=== PATIENT | male | born 1955 | race Two or more races ===

== ENCOUNTER 2016-04-26 20:57 | Inpatient (IN) | payer MEDICAID ==
[~2016-04-26] VITALS: Ht 154.9 cm; Wt 28.7 kg
[~2016-04-26 20:57] MED LIST: ENAL-3 PO; GABA-494 OR; INSLISPI; INSUPOW; NOR5T GT; [UNRECOGNIZED DRUG - OTHER] SUBCUT
[2016-04-26 22:07] LABS: Basophils # (auto) 0.1 uL; Basophils % (auto) 1.1 % (0.0-2.0); DEFINITIVE VIEW TRANSMISSION; Eosinophils # (auto) 0.7 uL; Eosinophils % (auto) 9.9 % (0.0-7.0); Hematocrit 25.7 % (41.0-53.0); Hemoglobin 8.6 g/dL (13.5-17.5); Lymphocytes # (auto) 0.9 uL; Lymphocytes % (auto) 12.8 % (10.0-50.0); Mean Corpuscular Hemoglobin 28.7 pg (28.0-32.0); Mean Corpuscular Hgb Conc. 33.6 g/dL (32.0-36.0); Mean Corpuscular Volume 85.3 fL (80.0-100.0); Mean Platelet Volume 8.4 fL (7.4-10.4); Monocytes # (auto) 0.8 uL; Monocytes % (auto) 10.9 % (0.0-12.0); Neutrophils # (auto) 4.8 uL; Neutrophils % (auto) 65.3 % (37.0-80.0); Platelet Count (auto) 238 10^3/uL (140-450); Red Cell Distribution Width 15.8 % (11.6-16.0); White Blood Cell 7.4 10^3/uL (4.4-10.8)
[2016-04-26 22:19] LABS: Albumin 1.3 g/dL (3.4-5.0); BUN/Creatinine Ratio 18.9; Calcium 7.2 mg/dL (8.5-10.1); Magnesium 1.5 mg/dL (1.6-2.6); Potassium 3.9 mmol/L (3.5-5.1)
[2016-04-26 22:20] LABS: INR 1.06 (0.9-1.15); Partial Thromboplastin Time 29.7 sec (22.64-33.71); Prothrombin Time 10.9 sec (9.37-12.3)
[2016-04-26 22:21] LABS: Bilirubin, Total 0.1 mg/dL (0.2-1.0); Total Protein 6.1 g/dL (6.4-8.2)
[2016-04-26] MEDS ORDERED: ASPirin 81 mg TAB PO ONE (22:45)
[2016-04-26] MEDS ORDERED: ALUM & MAG HYDROX-SIMETH LIQ(MAALOX) 30 ML PO ONE (22:45)
[2016-04-26] MEDS ORDERED: DONNATAL 5ml ORAL Elix (BELLADONNA ALK-PHENOBARB) PO ONE (22:45)
[2016-04-26] MEDS ORDERED: LIDOCAINE VISCOUS 2% 15ML UD PO ONE (22:45)
[2016-04-27] MEDS ORDERED: ACETAMINOPHEN 325 MG TAB PO PRN (00:30)
[2016-04-27] MEDS ORDERED: MORPHINE SULF INJ 2 MG/ML SYRINGE 1ML IV PRN (00:30)
[2016-04-27] MEDS ORDERED: DEXTROSE (50%) 50ML SYRG IV PRN (00:30)
[2016-04-27] MEDS ORDERED: MAGNESIUM SULFATE 1GM/100ML 100 ML IV ONE (00:30)
[2016-04-27] MEDS ORDERED: TEMAZEPAM 15 MG CAP PO PRN (00:30)
[2016-04-27] MEDS ORDERED: NITROGLYCERIN 0.4 MG SL TAB SL PRN (00:30)
[2016-04-27] MEDS ORDERED: HYDROcodone-ACET 5/325MG TAB PO PRN (00:30)
[2016-04-27] MEDS: SODIUM CHLORIDE 0.9% 1,000 ML IV SCH ×3 (00:45→22:47)
[2016-04-27] MEDS: MORPHINE SULF INJ 2 MG/ML SYRINGE 1ML IV PRN ×6 (02:37→22:47)
[2016-04-27 05:00] VITALS: BP 145/79
[2016-04-27] MEDS: ACCU-CHEK COMFORT CURVE STRIP VI SCH ×3 (05:54→17:32)
[2016-04-27] MEDS: InsuLIN REG 1unit/0.01ml Soln (100units/ml) SC SCH ×3 (05:54→17:37)
[2016-04-27] MEDS ORDERED: FERROUS SULFATE 325 MG TAB PO SCH (08:00)
[2016-04-27] MEDS: ADENOSINE 42 MG in GIVE UN-DILUTED 0 ML IV ONE ×2 (08:30→11:36)
[2016-04-27 08:33] VITALS: BP 143/80
[2016-04-27] MEDS: FAMOTIDINE 20 MG TAB PO SCH ×3 (10:00→22:45)
[2016-04-27] MEDS: ASPirin 81 mg TAB PO SCH (10:00)
[2016-04-27] MEDS: ENOXAPARIN SOD 30 MG/0.3 ML SYRINGE SC SCH (10:00)
[2016-04-27] MEDS: HYDROXYCHLOROQUINE SULFATE 200 MG TAB PO SCH ×2 (10:00→22:45)
[2016-04-27] MEDS: ENALAPRIL MALEATE 2.5 MG TAB PO SCH (10:12)
[2016-04-27] MEDS: METOPROLOL TARTRATE 25 MG TAB PO SCH ×2 (10:12→22:47)
[2016-04-27 12:31] VITALS: BP 153/78
[2016-04-27] MEDS ORDERED: EPOETIN ALFA 10,000 UNIT/1 ML VIAL SC ONE (13:15)
[2016-04-27] MEDS: ALBUMIN 25% 100 ML IV SCH ×2 (14:03→14:55)
[2016-04-27 14:59] LABS: Urine Bilirubin Negative (Negative); Urine Color Yellow (Yellow); Urine Ketone Negative (Negative); Urine Nitrite Negative (Negative); Urine RBC 8 /hpf (0 - 3); Urine Squamous Epithelial Cell FEW /hpf (<5); Urine Urobilinogen Normal (Negative); Urine pH 6.5 (5.0-8.0)
[2016-04-27 15:13] LABS: Urine Blood 1+ /uL (Negative); Urine Glucose 3+ mg/dL (Normal)
[2016-04-27] MEDS ORDERED: BUMETANIDE (0.25MG/ML) 4 ML VIAL IV ONE (16:15)
[2016-04-27 16:54] VITALS: BP 154/83
[2016-04-27] MEDS: Boost Glucose Control 8 Ounces PO SCH ×2 (17:24→22:00)
[2016-04-27] MEDS: FERROUS SULFATE 325 MG TAB PO SCH (17:28)
[2016-04-27] MEDS: TAMSULOSIN HYDROCHLORIDE 0.4 MG CAP PO SCH (17:28)
[2016-04-27] MEDS: ONDANSETRON HCL 4 MG/2 ML VIAL IV PRN (18:51)
[2016-04-27 22:54] VITALS: BP 119/79
[2016-04-28] VITALS (12 sets, daily range): BP systolic 148–161; BP diastolic 79–95
[2016-04-28] MEDS: InsuLIN REG 1unit/0.01ml Soln (100units/ml) SC SCH ×5 (00:50→23:38)
[2016-04-28] MEDS: ACCU-CHEK COMFORT CURVE STRIP VI SCH ×5 (01:25→23:38)
[2016-04-28] MEDS: ONDANSETRON HCL 4 MG/2 ML VIAL IV PRN ×5 (01:58→20:43)
[2016-04-28] MEDS: Boost Glucose Control 8 Ounces PO SCH ×4 (06:00→22:00)
[2016-04-28 06:39] LABS: Basophils # (auto) 0.1 uL; Basophils % (auto) 1.5 % (0.0-2.0); Eosinophils # (auto) 0.3 uL; Eosinophils % (auto) 3.5 % (0.0-7.0); Hematocrit 29.6 % (41.0-53.0); Lymphocytes # (auto) 1.1 uL; Lymphocytes % (auto) 13.5 % (10.0-50.0); Mean Corpuscular Hemoglobin 28.9 pg (28.0-32.0); Mean Corpuscular Hgb Conc. 33.7 g/dL (32.0-36.0); Mean Corpuscular Volume 85.6 fL (80.0-100.0); Mean Platelet Volume 9.1 fL (7.4-10.4); Monocytes # (auto) 0.5 uL; Monocytes % (auto) 6.2 % (0.0-12.0); Neutrophils % (auto) 75.3 % (37.0-80.0); Platelet Count (auto) 243 10^3/uL (140-450); Red Cell Distribution Width 15.6 % (11.6-16.0)
[2016-04-28 07:02] LABS: BUN/Creatinine Ratio 26.3; Bilirubin, Total 0.5 mg/dL (0.2-1.0); Calcium 7.7 mg/dL (8.5-10.1); Magnesium 1.8 mg/dL (1.6-2.6); Phosphorus 3.2 mg/dL (2.6-4.90); Potassium 3.8 mmol/L (3.5-5.1); Total Protein 6.2 g/dL (6.4-8.2); Uric Acid 4.1 mg/dL (3.5-7.2)
[2016-04-28] MEDS: MORPHINE SULF INJ 2 MG/ML SYRINGE 1ML IV PRN ×4 (07:31→20:43)
[2016-04-28] MEDS: FERROUS SULFATE 325 MG TAB PO SCH ×3 (08:33→18:00)
[2016-04-28] MEDS: ENOXAPARIN SOD 30 MG/0.3 ML SYRINGE SC SCH (09:41)
[2016-04-28] MEDS: ENALAPRIL MALEATE 2.5 MG TAB PO SCH (09:47)
[2016-04-28] MEDS: HYDROXYCHLOROQUINE SULFATE 200 MG TAB PO SCH ×2 (09:47→23:20)
[2016-04-28] MEDS: METOPROLOL TARTRATE 25 MG TAB PO SCH ×2 (09:50→23:19)
[2016-04-28] MEDS: ASPirin 81 mg TAB PO SCH (09:52)
[2016-04-28] MEDS: FAMOTIDINE 20 MG TAB PO SCH ×2 (09:53→23:20)
[2016-04-28] MEDS: TAMSULOSIN HYDROCHLORIDE 0.4 MG CAP PO SCH (18:00)
[2016-04-28 18:21] LABS: Urine Bilirubin Negative (Negative); Urine Blood 2+ /uL (Negative); Urine Color Yellow (Yellow); Urine Glucose 2+ mg/dL (Normal); Urine Ketone Negative (Negative); Urine Nitrite Negative (Negative); Urine RBC 3 /hpf (0 - 3); Urine Squamous Epithelial Cell FEW /hpf (<5); Urine Urobilinogen Normal (Negative); Urine pH 6.5 (5.0-8.0)
[2016-04-29] MEDS: MORPHINE SULF INJ 2 MG/ML SYRINGE 1ML IV PRN ×5 (01:04→21:33)
[2016-04-29] MEDS: ONDANSETRON HCL 4 MG/2 ML VIAL IV PRN ×3 (01:05→13:10)
[2016-04-29] MEDS: cloNIDine HCL 0.1 MG TAB PO PRN (01:17)
[2016-04-29] MEDS: SODIUM CHLORIDE 0.9% 1,000 ML IV SCH ×2 (02:18→21:43)
[2016-04-29 05:00] VITALS: BP 152/81
[2016-04-29] MEDS: ACCU-CHEK COMFORT CURVE STRIP VI SCH ×3 (05:26→18:00)
[2016-04-29] MEDS: Boost Glucose Control 8 Ounces PO SCH ×4 (05:26→21:24)
[2016-04-29] MEDS: InsuLIN REG 1unit/0.01ml Soln (100units/ml) SC SCH ×3 (05:26→18:00)
[2016-04-29] MEDS: FERROUS SULFATE 325 MG TAB PO SCH ×3 (08:00→18:39)
[2016-04-29 08:12] VITALS: BP 160/79
[2016-04-29] MEDS: HYDROXYCHLOROQUINE SULFATE 200 MG TAB PO SCH ×2 (10:00→21:33)
[2016-04-29] MEDS: ASPirin 81 mg TAB PO SCH (10:00)
[2016-04-29] MEDS: FAMOTIDINE 20 MG TAB PO SCH ×2 (10:00→21:33)
[2016-04-29] MEDS: ENOXAPARIN SOD 30 MG/0.3 ML SYRINGE SC SCH (10:00)
[2016-04-29 10:30] VITALS: BP 152/88
[2016-04-29 12:30] VITALS: BP 149/79
[2016-04-29] MEDS ORDERED: LIDOCAINE 2%HCL (LOCAL ANESTH.) INJ 20ML MDV ONE (12:49)
[2016-04-29] MEDS ORDERED: IODIXANOL 320MG/ML 100ML BTL IV ONE ×2 (12:49→13:55)
[2016-04-29] MEDS ORDERED: MIDAZOLAM HCL 1MG/1ML-2 ML VIAL ONE (13:09)
[2016-04-29] MEDS ORDERED: ANGIOMAX 250 MG VIAL IV ONE (13:09)
[2016-04-29] MEDS ORDERED: fentaNYL CITRATE 100 MCG/2 ML VL ONE (13:09)
[2016-04-29] MEDS ORDERED: VERAPAMIL 2.5MG/ML INJ 2ML VIAL IV ONE (13:10)
[2016-04-29] MEDS ORDERED: SODIUM CHL 0.9% 50 ML ONE (13:10)
[2016-04-29] MEDS ORDERED: EPTIFIBATIDE INJ (2MG/ML) 10ML VIAL IV ONE (13:11)
[2016-04-29] MEDS ORDERED: TICAGRELOR 90 MG TAB ONE (13:40)
[2016-04-29] MEDS ORDERED: ASPirin-EC 325mg tab PO ONE (14:30)
[2016-04-29] MEDS ORDERED: TICAGRELOR 90 MG TAB PO ONE (14:30)
[2016-04-29] MEDS: ENALAPRIL MALEATE 2.5 MG TAB PO SCH (15:40)
[2016-04-29] MEDS: METOPROLOL TARTRATE 25 MG TAB PO SCH ×3 (15:40→21:51)
[2016-04-29 16:27] VITALS: BP 152/78
[2016-04-29] MEDS: TAMSULOSIN HYDROCHLORIDE 0.4 MG CAP PO SCH (18:39)
[2016-04-29 22:00] VITALS: BP 151/75
[2016-04-29] MEDS ORDERED: TICAGRELOR 90 MG TAB PO SCH (22:00)
[2016-04-29 22:53] LABS: BUN/Creatinine Ratio 21.2
[2016-04-30] MEDS: InsuLIN REG 1unit/0.01ml Soln (100units/ml) SC SCH ×3 (00:58→17:45)
[2016-04-30] MEDS: MORPHINE SULF INJ 2 MG/ML SYRINGE 1ML IV PRN ×5 (01:21→23:29)
[2016-04-30 05:06] VITALS: BP 158/85
[2016-04-30 05:25] LABS: Basophils # (auto) 0.1 uL; Basophils % (auto) 1.2 % (0.0-2.0); Eosinophils # (auto) 0.3 uL; Hemoglobin 9.9 g/dL (13.5-17.5); Lymphocytes # (auto) 1.4 uL; Lymphocytes % (auto) 22.1 % (10.0-50.0); Mean Corpuscular Hemoglobin 28.5 pg (28.0-32.0); Mean Corpuscular Hgb Conc. 32.9 g/dL (32.0-36.0); Mean Corpuscular Volume 86.5 fL (80.0-100.0); Mean Platelet Volume 9.2 fL (7.4-10.4); Monocytes # (auto) 0.7 uL; Monocytes % (auto) 11.7 % (0.0-12.0); Neutrophils # (auto) 3.8 uL; Platelet Count (auto) 217 10^3/uL (140-450); Red Cell Distribution Width 15.8 % (11.6-16.0); White Blood Cell 6.3 10^3/uL (4.4-10.8)
[2016-04-30] MEDS: Boost Glucose Control 8 Ounces PO SCH ×4 (05:26→21:55)
[2016-04-30 05:35] LABS: INR 1.15 (0.9-1.15); Partial Thromboplastin Time 37.6 sec (22.64-33.71); Prothrombin Time 11.8 sec (9.37-12.3)
[2016-04-30] MEDS: ACCU-CHEK COMFORT CURVE STRIP VI SCH ×4 (05:40→23:41)
[2016-04-30 05:46] LABS: BUN/Creatinine Ratio 24.1; Calcium 7.3 mg/dL (8.5-10.1); Potassium 3.7 mmol/L (3.5-5.1)
[2016-04-30] MEDS ORDERED: CLOPIDOGREL 300 MG TAB PO ONE ×2 (06:00→10:00)
[2016-04-30 08:11] VITALS: BP 143/77
[2016-04-30] MEDS: HYDROXYCHLOROQUINE SULFATE 200 MG TAB PO SCH ×2 (08:47→21:55)
[2016-04-30] MEDS: METOPROLOL TARTRATE 25 MG TAB PO SCH ×2 (08:48→21:54)
[2016-04-30] MEDS: ENALAPRIL MALEATE 2.5 MG TAB PO SCH (08:48)
[2016-04-30] MEDS: ASPirin 81 mg TAB PO SCH (08:49)
[2016-04-30] MEDS: FERROUS SULFATE 325 MG TAB PO SCH ×4 (08:49→17:45)
[2016-04-30] MEDS: FAMOTIDINE 20 MG TAB PO SCH ×2 (08:49→21:55)
[2016-04-30] MEDS ORDERED: ASPirin 81 mg TAB PO SCH (10:00)
[2016-04-30] MEDS: ENOXAPARIN SOD 30 MG/0.3 ML SYRINGE SC SCH (10:00)
[2016-04-30] MEDS: SODIUM CHLORIDE 0.9% 1,000 ML IV SCH (10:09)
[2016-04-30] MEDS ORDERED: ceFAZolin 1GM/50ML D5W 50 ML IV ONE (11:02)
[2016-04-30] MEDS ORDERED: fentaNYL CITRATE 100 MCG/2 ML VL ONE (11:49)
[2016-04-30] MEDS ORDERED: MIDAZOLAM HCL 1MG/1ML-2 ML VIAL ONE (11:49)
[2016-04-30] MEDS ORDERED: DEXAMETHASONE SOD PHOS 10MG/1ML VIAL INJ ONE (11:49)
[2016-04-30] MEDS ORDERED: ONDANSETRON HCL 4 MG/2 ML VIAL ONE (11:49)
[2016-04-30] MEDS ORDERED: NEOMYCIN-BACITRACIN-POLYM 15GM TOP OINT TOP ONE (12:06)
[2016-04-30] MEDS ORDERED: HYDROmorphone HCL 2 MG/ML VL IV PRN (12:30)
[2016-04-30] MEDS: ONDANSETRON HCL 4 MG/2 ML VIAL IV ONE ×2 (12:30→17:24)
[2016-04-30] MEDS ORDERED: DEXTROSE (50%) 50ML SYRG IV PRN (13:15)
[2016-04-30 13:45] VITALS: BP 165/87
[2016-04-30 14:00] VITALS: BP 155/82
[2016-04-30 16:48] VITALS: BP 155/89
[2016-04-30] MEDS: TAMSULOSIN HYDROCHLORIDE 0.4 MG CAP PO SCH (17:23)
[2016-04-30] MEDS: ONDANSETRON HCL 4 MG/2 ML VIAL IV PRN ×2 (17:44→23:39)
[2016-04-30 21:57] VITALS: BP 161/91
[2016-04-30] MEDS: cloNIDine HCL 0.1 MG TAB PO PRN (23:30)
[2016-05-01] MEDS: SODIUM CHLORIDE 0.9% 1,000 ML IV SCH ×2 (04:30→20:58)
[2016-05-01 04:40] VITALS: BP 146/83
[2016-05-01] MEDS: MORPHINE SULF INJ 2 MG/ML SYRINGE 1ML IV PRN ×3 (05:11→18:10)
[2016-05-01] MEDS: ONDANSETRON HCL 4 MG/2 ML VIAL IV PRN ×3 (05:12→18:10)
[2016-05-01] MEDS: InsuLIN REG 1unit/0.01ml Soln (100units/ml) SC SCH ×4 (06:00→18:00)
[2016-05-01] MEDS: Boost Glucose Control 8 Ounces PO SCH ×4 (06:13→21:25)
[2016-05-01] MEDS: ACCU-CHEK COMFORT CURVE STRIP VI SCH ×3 (06:14→18:00)
[2016-05-01] MEDS: FERROUS SULFATE 325 MG TAB PO SCH ×3 (08:00→18:00)
[2016-05-01 08:08] VITALS: BP 137/80
[2016-05-01] MEDS: ASPirin 81 mg TAB PO SCH (09:17)
[2016-05-01] MEDS: FAMOTIDINE 20 MG TAB PO SCH ×2 (09:17→21:22)
[2016-05-01] MEDS: CLOPIDOGREL BISULFATE 75 MG TAB PO SCH (09:17)
[2016-05-01] MEDS: HYDROXYCHLOROQUINE SULFATE 200 MG TAB PO SCH ×2 (09:18→21:22)
[2016-05-01] MEDS: LISINOPRIL 5 MG TAB PO SCH (09:18)
[2016-05-01] MEDS: METOPROLOL TARTRATE 25 MG TAB PO SCH ×2 (09:19→21:22)
[2016-05-01] MEDS: ENOXAPARIN SOD 40 MG/0.4 ML SYRINGE SC SCH (09:19)
[2016-05-01 12:21] VITALS: BP 112/62
[2016-05-01 16:57] VITALS: BP_SYST 125; BP_SYST 149; BP_DIAS 62; BP_DIAS 83
[2016-05-01] MEDS: TAMSULOSIN HYDROCHLORIDE 0.4 MG CAP PO SCH (18:00)
[2016-05-01] MEDS: ATORVASTATIN 20 MG TAB PO SCH (21:22)
[2016-05-01 21:42] VITALS: BP 166/94
[2016-05-02] MEDS: MORPHINE SULF INJ 2 MG/ML SYRINGE 1ML IV PRN ×6 (00:12→21:39)
[2016-05-02] MEDS: ACCU-CHEK COMFORT CURVE STRIP VI SCH ×5 (00:18→23:59)
[2016-05-02] MEDS: ONDANSETRON HCL 4 MG/2 ML VIAL IV PRN ×5 (04:34→21:39)
[2016-05-02 04:40] VITALS: BP 152/84
[2016-05-02] MEDS: Boost Glucose Control 8 Ounces PO SCH ×4 (05:11→21:41)
[2016-05-02] MEDS: InsuLIN REG 1unit/0.01ml Soln (100units/ml) SC SCH ×5 (05:12→23:59)
[2016-05-02] MEDS: FERROUS SULFATE 325 MG TAB PO SCH ×4 (08:14→18:00)
[2016-05-02 08:35] VITALS: BP 161/95
[2016-05-02] MEDS: FAMOTIDINE 20 MG TAB PO SCH ×2 (09:08→21:40)
[2016-05-02] MEDS: ASPirin 81 mg TAB PO SCH (09:08)
[2016-05-02] MEDS: HYDROXYCHLOROQUINE SULFATE 200 MG TAB PO SCH ×2 (09:09→21:40)
[2016-05-02] MEDS: ENOXAPARIN SOD 40 MG/0.4 ML SYRINGE SC SCH (09:09)
[2016-05-02] MEDS: LISINOPRIL 5 MG TAB PO SCH (09:09)
[2016-05-02] MEDS: CLOPIDOGREL BISULFATE 75 MG TAB PO SCH (09:09)
[2016-05-02] MEDS: METOPROLOL TARTRATE 25 MG TAB PO SCH ×2 (09:10→21:40)
[2016-05-02 13:00] VITALS: BP 158/98
[2016-05-02] MEDS: SODIUM CHLORIDE 0.9% 1,000 ML IV SCH (13:45)
[2016-05-02 17:09] VITALS: BP 156/88
[2016-05-02] MEDS: TAMSULOSIN HYDROCHLORIDE 0.4 MG CAP PO SCH (17:27)
[2016-05-02] MEDS: ATORVASTATIN 20 MG TAB PO SCH (21:40)
[2016-05-02 22:00] VITALS: BP 163/91
[2016-05-03] MEDS: ONDANSETRON HCL 4 MG/2 ML VIAL IV PRN ×5 (02:58→20:46)
[2016-05-03] MEDS: MORPHINE SULF INJ 2 MG/ML SYRINGE 1ML IV PRN ×5 (02:59→20:46)
[2016-05-03 05:00] VITALS: BP 178/94
[2016-05-03] MEDS: cloNIDine HCL 0.1 MG TAB PO PRN ×2 (05:41→23:52)
[2016-05-03] MEDS: InsuLIN REG 1unit/0.01ml Soln (100units/ml) SC SCH ×4 (05:44→23:53)
[2016-05-03] MEDS: Boost Glucose Control 8 Ounces PO SCH ×4 (05:44→22:24)
[2016-05-03] MEDS: ACCU-CHEK COMFORT CURVE STRIP VI SCH ×4 (05:44→23:52)
[2016-05-03] MEDS: SODIUM CHLORIDE 0.9% 1,000 ML IV SCH ×2 (06:01→23:02)
[2016-05-03 06:38] LABS: Basophils # (auto) 0 uL; Basophils % (auto) 0.7 % (0.0-2.0); Eosinophils # (auto) 0.4 uL; Eosinophils % (auto) 6.6 % (0.0-7.0); Hematocrit 31.9 % (41.0-53.0); Hemoglobin 10.7 g/dL (13.5-17.5); Lymphocytes # (auto) 1.2 uL; Lymphocytes % (auto) 19.6 % (10.0-50.0); Mean Corpuscular Hemoglobin 28.9 pg (28.0-32.0); Mean Corpuscular Hgb Conc. 33.4 g/dL (32.0-36.0); Mean Corpuscular Volume 86.5 fL (80.0-100.0); Monocytes # (auto) 0.6 uL; Monocytes % (auto) 8.8 % (0.0-12.0); Neutrophils # (auto) 4.1 uL; Neutrophils % (auto) 64.3 % (37.0-80.0); Platelet Count (auto) 242 10^3/uL (140-450); Red Cell Distribution Width 16.4 % (11.6-16.0); White Blood Cell 6.3 10^3/uL (4.4-10.8)
[2016-05-03 06:42] LABS: Albumin 1.7 g/dL (3.4-5.0); BUN/Creatinine Ratio 23.8; Bilirubin, Total 0.3 mg/dL (0.2-1.0); Calcium 7.4 mg/dL (8.5-10.1); Phosphorus 3.1 mg/dL (2.5-4.90); Potassium 3.8 mmol/L (3.5-5.1); Total Protein 6.1 g/dL (6.4-8.2)
[2016-05-03] MEDS: FERROUS SULFATE 325 MG TAB PO SCH ×3 (08:00→18:00)
[2016-05-03 08:22] VITALS: BP 148/81
[2016-05-03] MEDS: ENOXAPARIN SOD 40 MG/0.4 ML SYRINGE SC SCH (11:04)
[2016-05-03] MEDS: CLOPIDOGREL BISULFATE 75 MG TAB PO SCH (11:05)
[2016-05-03] MEDS: HYDROXYCHLOROQUINE SULFATE 200 MG TAB PO SCH ×2 (11:05→22:24)
[2016-05-03] MEDS: FAMOTIDINE 20 MG TAB PO SCH ×2 (11:05→22:23)
[2016-05-03] MEDS: ASPirin 81 mg TAB PO SCH (11:05)
[2016-05-03] MEDS: METOPROLOL TARTRATE 25 MG TAB PO SCH ×2 (11:05→22:22)
[2016-05-03] MEDS: LISINOPRIL 5 MG TAB PO SCH (11:06)
[2016-05-03 12:47] VITALS: BP 160/86
[2016-05-03] MEDS: TAMSULOSIN HYDROCHLORIDE 0.4 MG CAP PO SCH (18:09)
[2016-05-03 22:00] VITALS: BP 155/80
[2016-05-03] MEDS: ATORVASTATIN 20 MG TAB PO SCH (22:23)
[2016-05-04] MEDS: ONDANSETRON HCL 4 MG/2 ML VIAL IV PRN ×4 (01:51→22:28)
[2016-05-04] MEDS: MORPHINE SULF INJ 2 MG/ML SYRINGE 1ML IV PRN ×5 (01:52→22:29)
[2016-05-04 05:00] VITALS: BP 154/92
[2016-05-04] MEDS: Boost Glucose Control 8 Ounces PO SCH ×3 (05:51→22:31)
[2016-05-04] MEDS: ACCU-CHEK COMFORT CURVE STRIP VI SCH ×3 (05:51→18:01)
[2016-05-04] MEDS: InsuLIN REG 1unit/0.01ml Soln (100units/ml) SC SCH ×3 (06:00→18:00)
[2016-05-04] MEDS: FERROUS SULFATE 325 MG TAB PO SCH ×3 (08:00→17:50)
[2016-05-04 09:00] VITALS: BP 143/78
[2016-05-04] MEDS: ASPirin 81 mg TAB PO SCH (10:51)
[2016-05-04] MEDS: ENOXAPARIN SOD 40 MG/0.4 ML SYRINGE SC SCH (10:52)
[2016-05-04] MEDS: CLOPIDOGREL BISULFATE 75 MG TAB PO SCH (10:52)
[2016-05-04] MEDS: FAMOTIDINE 20 MG TAB PO SCH ×2 (10:53→22:29)
[2016-05-04] MEDS: METOPROLOL TARTRATE 25 MG TAB PO SCH ×2 (10:53→22:30)
[2016-05-04] MEDS: HYDROXYCHLOROQUINE SULFATE 200 MG TAB PO SCH ×2 (10:54→22:29)
[2016-05-04] MEDS: LISINOPRIL 5 MG TAB PO SCH (10:54)
[2016-05-04] MEDS: CITALOPRAM HYDROBR 20 MG TAB PO SCH (10:54)
[2016-05-04 13:00] VITALS: BP 163/94
[2016-05-04] MEDS: SODIUM CHLORIDE 0.9% 1,000 ML IV SCH (16:34)
[2016-05-04 17:00] VITALS: BP 176/83
[2016-05-04] MEDS: TAMSULOSIN HYDROCHLORIDE 0.4 MG CAP PO SCH (18:00)
[2016-05-04 22:00] VITALS: BP 164/97
[2016-05-04] MEDS: ATORVASTATIN 20 MG TAB PO SCH (22:29)
[2016-05-05] MEDS: cloNIDine HCL 0.1 MG TAB PO PRN ×2 (00:25→13:43)
[2016-05-05] MEDS: ACCU-CHEK COMFORT CURVE STRIP VI SCH ×4 (00:25→18:00)
[2016-05-05 04:38] VITALS: BP 162/98
[2016-05-05 04:40] VITALS: BP 162/98
[2016-05-05] MEDS: ONDANSETRON HCL 4 MG/2 ML VIAL IV PRN ×2 (04:55→17:18)
[2016-05-05] MEDS: MORPHINE SULF INJ 2 MG/ML SYRINGE 1ML IV PRN ×2 (04:56→22:02)
[2016-05-05] MEDS: InsuLIN REG 1unit/0.01ml Soln (100units/ml) SC SCH ×4 (06:00→18:00)
[2016-05-05] MEDS: Boost Glucose Control 8 Ounces PO SCH ×4 (06:16→22:00)
[2016-05-05] MEDS: SODIUM CHLORIDE 0.9% 1,000 ML IV SCH ×2 (08:21→22:04)
[2016-05-05 09:00] VITALS: BP 181/116
[2016-05-05] MEDS: LISINOPRIL 5 MG TAB PO SCH (09:53)
[2016-05-05] MEDS: CLOPIDOGREL BISULFATE 75 MG TAB PO SCH (09:53)
[2016-05-05] MEDS: ENOXAPARIN SOD 40 MG/0.4 ML SYRINGE SC SCH ×2 (09:53→10:00)
[2016-05-05] MEDS: ASPirin 81 mg TAB PO SCH (09:54)
[2016-05-05] MEDS: FAMOTIDINE 20 MG TAB PO SCH ×2 (09:54→22:03)
[2016-05-05] MEDS: FERROUS SULFATE 325 MG TAB PO SCH ×3 (09:54→18:00)
[2016-05-05] MEDS: METOPROLOL TARTRATE 25 MG TAB PO SCH ×2 (09:54→22:02)
[2016-05-05] MEDS: CITALOPRAM HYDROBR 20 MG TAB PO SCH (09:54)
[2016-05-05] MEDS: HYDROXYCHLOROQUINE SULFATE 200 MG TAB PO SCH ×2 (09:54→22:03)
[2016-05-05 12:53] VITALS: BP 167/106
[2016-05-05 16:53] VITALS: BP 151/83
[2016-05-05] MEDS: TAMSULOSIN HYDROCHLORIDE 0.4 MG CAP PO SCH (18:00)
[2016-05-05 22:00] VITALS: BP 156/104
[2016-05-05] MEDS: ATORVASTATIN 20 MG TAB PO SCH (22:03)
[2016-05-06] MEDS: InsuLIN REG 1unit/0.01ml Soln (100units/ml) SC SCH ×4 (00:44→18:00)
[2016-05-06] MEDS: ACCU-CHEK COMFORT CURVE STRIP VI SCH ×4 (00:47→18:01)
[2016-05-06] MEDS: MORPHINE SULF INJ 2 MG/ML SYRINGE 1ML IV PRN ×4 (02:05→18:00)
[2016-05-06] MEDS: ONDANSETRON HCL 4 MG/2 ML VIAL IV PRN ×4 (02:08→18:00)
[2016-05-06 05:00] VITALS: BP 155/92
[2016-05-06] MEDS: Boost Glucose Control 8 Ounces PO SCH ×3 (06:13→18:01)
[2016-05-06 09:00] VITALS: BP 148/83
[2016-05-06] MEDS: HYDROXYCHLOROQUINE SULFATE 200 MG TAB PO SCH (09:08)
[2016-05-06] MEDS: LISINOPRIL 5 MG TAB PO SCH (09:08)
[2016-05-06] MEDS: ASPirin 81 mg TAB PO SCH (09:09)
[2016-05-06] MEDS: FAMOTIDINE 20 MG TAB PO SCH (09:09)
[2016-05-06] MEDS: METOPROLOL TARTRATE 25 MG TAB PO SCH (09:09)
[2016-05-06] MEDS: CLOPIDOGREL BISULFATE 75 MG TAB PO SCH (09:09)
[2016-05-06] MEDS: CITALOPRAM HYDROBR 20 MG TAB PO SCH (09:10)
[2016-05-06] MEDS: ENOXAPARIN SOD 40 MG/0.4 ML SYRINGE SC SCH (09:12)
[2016-05-06] MEDS: FERROUS SULFATE 325 MG TAB PO SCH ×3 (09:13→18:00)
[2016-05-06 13:06] VITALS: BP 145/83
[2016-05-06] MEDS: SODIUM CHLORIDE 0.9% 1,000 ML IV SCH (16:56)
[2016-05-06 17:00] VITALS: BP 148/83
[2016-05-06] MEDS: TAMSULOSIN HYDROCHLORIDE 0.4 MG CAP PO SCH (18:00)
== END 2016-05-06 18:28 | disposition home or self-care (01) | DRG 175 ==
LOC: EDSEX 20:57 → EDBD 20:57 → ER 21:01 → TELE 21:02 → TELE-WESTW 04-27 02:00
PROVIDERS: ADMIT Nurse Practitioner; ATTEND Family Medicine
PROC: 30233N1 Transfusion of Nonautologous Red Blood Cells into Peripheral Vein, Percutaneous Approach (ICD-10-PCS; 2016-04-27)
PROC: 02713EZ Dilation of Coronary Artery, Two Arteries with Two Intraluminal Devices, Percutaneous Approach (ICD-10-PCS; principal; 2016-04-29)
PROC: B2111ZZ Fluoroscopy of Multiple Coronary Arteries using Low Osmolar Contrast (ICD-10-PCS; 2016-04-29)
PROC: 4A023N7 Measurement of Cardiac Sampling and Pressure, Left Heart, Percutaneous Approach (ICD-10-PCS; 2016-04-29)
PROC: 0Y6S0Z0 Detachment at Left 2nd Toe, Complete, Open Approach (ICD-10-PCS; 2016-04-30)
DX: I25.10 Atherosclerotic heart disease of native coronary artery without angina pectoris (principal); N17.0 Acute kidney failure with tubular necrosis; E43 Unspecified severe protein-calorie malnutrition; E10.21 Type 1 diabetes mellitus with diabetic nephropathy; E83.42 Hypomagnesemia; I13.0 Hypertensive heart and chronic kidney disease with heart failure and stage 1 through stage 4 chronic kidney disease, or unspecified chronic kidney disease; N18.3 Chronic kidney disease, stage 3 (moderate); E10.22 Type 1 diabetes mellitus with diabetic chronic kidney disease; L97.529 Non-pressure chronic ulcer of other part of left foot with unspecified severity; M19.90 Unspecified osteoarthritis, unspecified site; Z83.3 Family history of diabetes mellitus; Z87.891 Personal history of nicotine dependence; Z89.519 Acquired absence of unspecified leg below knee; D63.8 Anemia in other chronic diseases classified elsewhere; I25.2 Old myocardial infarction; Q66.7 Congenital pes cavus; F10.10 Alcohol abuse, uncomplicated; F41.9 Anxiety disorder, unspecified; N40.0 Benign prostatic hyperplasia without lower urinary tract symptoms; Z79.4 Long term (current) use of insulin; Z90.89 Acquired absence of other organs; F19.10 Other psychoactive substance abuse, uncomplicated; E10.621 Type 1 diabetes mellitus with foot ulcer; Z89.412 Acquired absence of left great toe; Z80.9 Family history of malignant neoplasm, unspecified; I25.5 Ischemic cardiomyopathy; I50.42 Chronic combined systolic (congestive) and diastolic (congestive) heart failure; E10.52 Type 1 diabetes mellitus with diabetic peripheral angiopathy with gangrene
CPT/HCPCS: 36415; 36430; 71010; 73630; 76775; 78452; 80048; 80053; 81001; 82306; 82570; 82962; 83735; 83970; 84100; 84156; 84484; 84550; 85025; 85049; 85610; 85730; 86803; 86850; 86900; 86901; 86920; 87081; 87340; 93005; 93017; 93306; 93926; 94761; 96374; 99152; C1874; J0153; J0690; J0885; J1100; J1815; J2250; J2405; J3490; Q9967